=== PATIENT | female | born 1990 | race Caucasian/White ===

== ENCOUNTER 2021-02-21 11:03 | Emergency (ER) | payer BC ==
[~2021-02-21] VITALS: Ht 172.7 cm; Wt 70.8 kg
[2021-02-21 11:12] VITALS: BP 96/62
== END 2021-02-21 14:01 | disposition left against medical advice (07) ==
LOC: ER 11:04
DX: R25.2 Cramp and spasm (principal); Z53.21 Procedure and treatment not carried out due to patient leaving prior to being seen by health care provider